=== PATIENT | male | born 1960 | race Caucasian/White ===

== ENCOUNTER 2017-07-30 12:58 | Emergency (ER) | payer OTHER ==
[~2017-07-30] VITALS: Ht 185.4 cm; Wt 170.1 kg
[~2017-07-30 12:58] MED LIST: ADULT LOW DOSE81 MG PO; BACTRIM DS TAB1 EACH PO; DULCOLAX5 MG PO; GLUCOPHAGE1000 MG PO; KEFLEX500 MG PO; LANTUS SOL100 UNIT/1 SUB-Q; LISINOPRIL-HCT1 EACH PO; MIRALAX17 GM PO; MOBIC15 MG PO; NOVOLOG100 UNITS/ IV; SIMVASTATIN40 MG PO
--- OUTSIDE RECORDS SUMMARY | 2017-07-30 14:04 | XMS | Clinical Summary ---
Demographics + + + | Address | [address] | | | [place] [address] | + + + | Home Phone | | + + + | Preferred Language | Unknown | + + + | Marital Status | Single | + + + | Mormonism Affiliation | Unknown | + + + | Race | White | + + + | Ethnic Group | Not or | + + + Author + + + | Author | [facility] | + + + | Organization | [facility] | + + + | Address | Unknown | + + + | Phone | Unavailable | + + + Support +------+ +---------+ + | Name | Relationship | Address | Phone | +------+ +---------+ + ECON | Unknown | | +------+ +---------+ + Care Team Providers + +------+-------+ | Care Clothing Sales Assistant Name | Role | Phone | + +------+-------+ | Jerrell Medina DO | PP | tel | + +------+-------+ Source Comments [facility] both [facility] and [facility] Allergies + + + + + + | Active Allergy | Reactions | Severity | Noted | Comments | | | | | Date | | + + + + + + | Buprenorphine Hcl | Diaphoresis | | 02/23/20 | HOT AND SWEATY | | | | | 16 | | + + + + + + | Morphine | Nausea and Vomiting | | 02/23/20 | | | | | | 16 | | + + + + + + Current Medications + + +-------+---------+------+------+-------+ | Prescription | Sig. | Disp. | Refills | Star | End | Statu | | | | | | t | Date | s | | | | | | Date | | | + + +-------+---------+------+------+-------+ | aspirin chewable | Chew and swallow 81 | | | | | Activ | | 81 mg oral | mg once daily. | | | | | e | | tablet,chewable | | | | | | | + + +-------+---------+------+------+-------+ | insulin glargine | Inject 40 Units | | | | | Activ | | 100 unit/mL | under the skin | | | | | e | | subcutaneous | (SUBC) once daily at | | | | | | | solution | bedtime. | | | | | | + + +-------+---------+------+------+-------+ | | Take 1 tablet by | | | | | Activ | | lisinopril-hydrochlo | mouth once daily. | | | | | e | | rothiazide 20-12.5 | | | | | | | | mg oral tablet | | | | | | | + + +-------+---------+------+------+-------+ | insulin aspart | Inject under the | | | | | Activ | | (NOVOLOG) 100 | skin (SUBC) once | | | | | e | | unit/mL subcutaneous | daily as needed. | | | | | | | solution | | | | | | | + + +-------+---------+------+------+-------+ | simvastatin 40 mg | Take 40 mg by mouth | | | | | Activ | | oral tablet | once daily in the | | | | | e | | | evening. | | | | | | + + +-------+---------+------+------+-------+ | metFORMIN 1,000 mg | Take 1,000 mg by | | | | | Activ | | oral tablet | mouth two times | | | | | e | | | daily. | | | | | | + + +-------+---------+------+------+-------+ Active Problems + + + | Problem | Noted Date | + + + | Morbid obesity with BMI of 45.0-49.9, adult (HCC) | 02/23/2016 | + + + | Benign essential HTN | 02/23/2016 | + + + | Hyperlipidemia | 02/23/2016 | + + + | DM type 2, not at goal (HCC) | 02/23/2016 | + + + | Chronic pain | 02/23/2016 | + + + | Vitamin D deficiency disease | 02/23/2016 | + + + | NADIYA on CPAP | 02/23/2016 | + + + Family History + + +------+ + | Medical History | Relation | Name | Comments | + + +------+ + | Cancer | Father | | colon | + + +------+ + | Diabetes | Father | | | + + +------+ + | Arthritis | Mother | | | + + +------+ + | Cancer | Mother | | breast | + + +------+ + | Hypertension | Mother | | | + + +------+ + + +------+--------+ + | Relation | Name | Status | Comments | + +------+--------+ + | Father | | | | + +------+--------+ + | Mother | | | | + +------+--------+ + Social History + + + +--------+------+ | Tobacco Use | Types | Packs/Day | Years | Date | | | | | Used | | + + + +--------+------+ | Current Some Day | Cigarettes | | | | | Smoker | | | | | + + + +--------+------+ + +------+---+---+ | Smokeless Tobacco: | Chew | | | | Current User | | | | + +------+---+---+ + + +---------+ + | Alcohol Use | Drinks/We | oz/Week | Comments | | | ek | | | + + +---------+ + | Yes | 10 | 6.0 | | | | Standard | | | | | drinks or | | | | | | | | | | equivalen | | | | | t | | | + + +---------+ + + + + | Sex Assigned at | Date Recorded | | | | + + + | Not on file | | + + + Last Filed Vital Signs + + + + | Vital Sign | Reading | Time Taken | + + + + | Blood Pressure | 155/80 | 02/23/2016 10:10 AM PDT | + + + + | Pulse | 74 | 02/23/2016 10:10 AM PDT | + + + + | Temperature | 36.6 C (97.8 F) | 02/23/2016 10:10 AM PDT | + + + + | Respiratory Rate | 18 | 02/23/2016 10:10 AM PDT | + + + + | Oxygen Saturation | 95% | 02/23/2016 10:10 AM PDT | + + + + | Inhaled Oxygen | - | - | | Concentration | | | + + + + | Weight | 166.4 kg (366 lb | 02/17/2017 3:17 PM PDT | | | 12.8 oz) | | + + + + | Height | 183.5 cm (6' 0.25") | 02/23/2016 10:10 AM PDT | + + + + | Body Mass Index | 49.4 | 02/17/2017 3:17 PM PDT | + + + + Plan of Treatment + + + + + | Health Maintenance | Due Date | Last Done | Comments | + + + + + | INFLUENZA VACCINE | | 05/09/2016, 05/14/2010, | | | (FLU SHOT) | 7 | 05/05/2008 | | + + + + + Results Not on filefrom Last 3 Months
--- OUTSIDE RECORDS SUMMARY | 2017-07-30 14:04 | XMS | Clinical Summary ---
Demographics + + + | Address | [address] | | | [place] [address] | + + + | Home Phone | | + + + | Preferred Language | Unknown | + + + | Marital Status | Single | + + + | Sikhism Affiliation | Unknown | + + + | Race | White | + + + | Ethnic Group | Not or | + + + Author + + + | Author | [facility] | + + + | Organization | [facility] | + + + | Address | Unknown | + + + | Phone | Unavailable | + + + Support +------+ +---------+ + | Name | Relationship | Address | Phone | +------+ +---------+ + ECON | Unknown | | +------+ +---------+ + Care Team Providers + +------+-------+ | Care Ripshear Operator Name | Role | Phone | + +------+-------+ | Jerrell Medina DO | PP | tel | + +------+-------+ Source Comments [facility]ending [facility] Allergies + + + + + [...]
[2017-07-30] MEDS ORDERED: KEFLEX500 MG PO (17:57)
[2017-07-30] MEDS ORDERED: BACTRIM DS TAB1 EACH PO (17:58)
== END 2017-07-30 18:10 | disposition home or self-care (01) ==
LOC: ED 12:58
PROC: 0H99XZZ Drainage of Perineum Skin, External Approach (ICD-10-PCS; principal; 2017-07-30)
DX: L02.215 Cutaneous abscess of perineum (principal); L03.315 Cellulitis of perineum; E11.65 Type 2 diabetes mellitus with hyperglycemia; I10 Essential (primary) hypertension; E78.00 Pure hypercholesterolemia, unspecified; Z88.5 Allergy status to narcotic agent; Z79.899 Other long term (current) drug therapy; Z79.4 Long term (current) use of insulin
CPT/HCPCS: 10060; 80053; 85025; 96374; 99283; J0696

== ENCOUNTER 2023-12-19 09:52 | Day surgery (SDC) | payer OTHER ==
[2023-12-13 08:24] VITALS: BP 144/73
[~2023-12-19] VITALS: Ht 185.4 cm; Wt 177.3 kg
[~2023-12-19 09:52] MED LIST changes: +CEFAZOLIN SODIUM 3 GM/30 ML SYR IV SCH; +FLOMAX0.4 MG PO; +FUROSEMIDE20 MG PO; +IBLOOD GLUCOSE TEST STRIP 1 EA TEST VI PRN; +LACTATED RINGER'S 1,000 ML IV SCH; +LEVOFLOXACIN500 MG PO; +LIDOCAINE HCL 1% 5 ML SDV INJ ONE; +LIPITOR80 MG GT; +MELOXICAM15 MG PO; +NEURONTIN300 MG PO; +NORVASC5 MG PO; +OSTERA TABLET1 EACH PO; +OXYBUTYNIN CHLO10 MG PO; +OZEMPIC2 MG/0.75; +PHENTERMINE HCL30 MG PO; +PIOGLITAZONE HC30 MG PO; +PROSCAR5 MG PO; +ROPINIROLE HC0.25 MG PO; +TADALAFIL10 MG PO; +TOUJEO SOL300 UNIT/1 SUB-Q
[2023-12-19 10:34] VITALS: BP 129/42
[2023-12-19] MEDS ORDERED: LIDOCAINE HCL 2% 5 ML SDV ONE (11:02)
[2023-12-19] MEDS ORDERED: propofoL 200 MG/20 ML VIAL ONE (11:02)
[2023-12-19 12:42] VITALS: BP 129/58
--- NOTE | 2023-12-19 12:47 | NUR ---
12/19/23 1247 Courtney Carr 1154 PT ARRIVED IN PACU SLEEPY WITH NO C/O'S. ABD SOFT. 1205 PASSING FLATUS AND TALKING WITH STAFF. 1215 DR AT BEDSIDE. ALL QUESTIONS ANSWERED. DR CHECKED PT'S CYST ON HIS SCROTUM AND TOLD HIM TO MAKE APPT IF HE WANTS IT REMOVED. 1220 DC INSTRUCTIONS GIVEN. 1224 LEFT VIA W/C.
--- NOTE | 2023-12-20 15:11 | OR ---
[facility] [address] [place], [place] [address] Signed DATE OF OPERATION: 12/19/2023 SURGEON: Yolis Meza MD PREOPERATIVE DIAGNOSES: 1. Family history of rectal cancer. 2. History of polyps. POSTOPERATIVE DIAGNOSES: Normal-appearing colon, biopsy of rectum to assess for occult colitis (episodic diarrhea complaints). PROCEDURE: Total colonoscopy to cecum with biopsy of rectum. ANESTHESIA: Intravenous sedation; propofol, Maeve Perico, CARPENTER AND JOINER and use of CPAP device. INDICATION: This 63-year-old white man is a patient Dr. Felicia Aguirre, who underwent colonoscopy several years ago by Dr. Pineda Hooper, was found to have polyps. He does have occasional diarrhea. He has a family history of rectal cancer in a family member. He has extreme obesity, weight is 375 pounds. He uses a CPAP device. He is admitted at this time to undergo screening colonoscopy. He understands the risk of bleeding, infection, and perforation. FINDINGS: The prep was excellent. Complete colonoscopy was undertaken to the cecum. Full and complete intubation of the cecum was accomplished. There was no evidence of polyps, diverticular formation, colitis, or cancer. Biopsy was taken of the rectum to assess for occult colitis. DESCRIPTION OF PROCEDURE: The patient was brought to the endoscopy suite and placed in the lateral decubitus position. His nasal CPAP device was in place. He was given intravenous sedation with careful monitoring by the orthopedic shoe maker given his extreme obesity. After satisfactory sedation, digital rectal examination was performed which was normal. Olympus video colonoscope was passed in the rectum and manipulated throughout the colon ultimately intubating the cecum itself. The ileocecal valve and appendiceal orifice were normal. The scope was then withdrawn and examination throughout showed no sign of abnormality. Electronically Signed By: YOLIS MEZA MD 12/19/23 0432 Electronically Signed By: YOLIS MEZA MD 12/21/23 1106 PATIENT NAME: TAMERA ARZOLA OPERATIVE REPORT DATE OF : 64 REPORT #: [id number] PHYSICIAN: YOLIS MEZA MD PCP: FELICIA AGUIRRE MD REPORT IS CONFIDENTIAL AND NOT TO BE RELEASED WITHOUT AUTHORIZATION [facility] [address] [place], [place] [address] Signed The rectum was normal as well. Retroflexed view was normal. Biopsies were taken of the rectum to assess for occult colitis considering his episodic diarrhea issue. The scope was then removed and the patient was taken to the recovery room in good condition. CONCLUDING DIAGNOSIS: Normal colon. PLAN: Would recommend repeat colonoscopy in 5 years based on family history of rectal cancer, sooner if symptoms should develop. We will review his pathology report regarding rectal biopsy. MD ANNIKA Quinn/ASHLEY /[id number] cc: Felicia Aguirre MD Copies: FELICIA AGUIRRE DMD ~ Electronically Signed By: YOLIS MEZA MD 12/19/23 2146 Electronically Signed By: YOLIS MEZA MD 12/21/23 1105 PATIENT NAME: TAMERA ARZOLA OPERATIVE REPORT DATE OF : 64 REPORT #: [id number] PHYSICIAN: YOLIS MEZA MD PCP: FELICIA AGUIRRE MD REPORT IS CONFIDENTIAL AND NOT TO BE RELEASED WITHOUT AUTHORIZATION
--- NOTE | 2023-12-20 18:28 | EKG ---
[facility] [address] [facility] [place], [place] [address] Signed Normal sinus rhythm Normal ECG When compared with ECG of 13-DEC-2023 08:33, Previous ECG has undetermined rhythm, needs review Confirmed by Lesvia Bran MD ([id number]) on 12/20/2023 6:28:18 PM Electronically Signed By: LESVIA BRAN 12/20/23 1828 PATIENT NAME: DIONTEMAINEBEARTAMERA Electrocardiogram DATE OF : 64 PHYSICIAN: LESVIA BRAN REPORT #: [id number] REPORT IS CONFIDENTIAL AND NOT TO BE RELEASED WITHOUT AUTHORIZATION
--- NOTE | 2023-12-21 17:10 | PATH ---
[facility] [address] [place], [place] [address] Signed SPECIMEN(S): A RECTUM BIOPSY SPECIMEN SOURCE: A. RECTUM BIOPSY CLINICAL HISTORY: Surveillance colonoscopy, family history of colon cancer, recurrent diarrhea, normal-appearing colon FINAL PATHOLOGIC DIAGNOSIS: Rectum, biopsies: - Hyperplastic colonic mucosa, negative for colitis, granulomas or dysplasia. AMB MICROSCOPIC EXAMINATION: Histologic sections of all submitted blocks are examined by light microscopy. These findings, together with the gross examination, support the pathologic diagnosis. GROSS DESCRIPTION: The specimen, labeled and designated "[place], rectum biopsy," is received in formalin and consists of three thomas soft tissue fragments, ranging from 0.3-0.4 cm. Entirely submitted in (A1). VB (under the direct supervision of a pathologist) The Gross Description was prepared using a voice recognition system. The report was reviewed for accuracy; however, sound-alike word errors, addition and/or deletions may occur. If there is any question about this report, please contact Client Services. ADDITIONAL NOTES: Immunohistochemical and/or in situ hybridization studies if performed in this case included appropriate positive controls that reacted as expected. This test was developed and its performance characteristics determined by [facility]. It has not been cleared or approved by the U.S. Food and Drug Administration. The FDA has determined that such clearance or approval is not necessary. This test is used for clinical purposes. It should not be regarded as investigational or for research. [facility] is certified under the Clinical Laboratory Improvement Amendments of 1988 (CLIA) as qualified to perform high complexity clinical laboratory testing. PATIENT NAME: TAMERA ARZOLA PATHOLOGY DATE OF : 64 REPORT #: [id number] PHYSICIAN: TRENA PATHOLOGY PCP: FELICIA AGUIRER MD REPORT IS CONFIDENTIAL AND NOT TO BE RELEASED WITHOUT AUTHORIZATION [facility] [address] [place], [place] [address] Signed PERFORMING LABORATORY: Technical component was performed by [facility], [address] [place] [address] (CLIA# [id number]). Professional interpretation was performed by [facility] [address] [address] [id number] Diagnostician: Sofia Chavis MD Pathologist Electronically Signed 12/21/2023 Copies: ~ PATIENT NAME: TAMERA ARZOLA PATHOLOGY DATE OF : 64 REPORT #: [id number] PHYSICIAN: TRENA ELDER PCP: FELICIA AGUIRRE MD REPORT IS CONFIDENTIAL AND NOT TO BE RELEASED WITHOUT AUTHORIZATION
== END 2023-12-19 12:24 | disposition home or self-care (01) ==
LOC: DS 09:52 → OPS 09:52 → DS 10:00 → OPS 11:40 → DS 11:40 → OPS 12:24
PROVIDERS: ATTEND Surgery
PROC: 0DBP8ZX Excision of Rectum, Via Natural or Artificial Opening Endoscopic, Diagnostic (ICD-10-PCS; principal; 2023-12-19 11:40)
DX: Z12.11 Encounter for screening for malignant neoplasm of colon (principal); K62.1 Rectal polyp; E11.9 Type 2 diabetes mellitus without complications; E66.9 Obesity, unspecified; Z80.0 Family history of malignant neoplasm of digestive organs; Z86.010 Personal history of colon polyps
CPT/HCPCS: 00811; 93005; 93010; J0690; J2001; J2704; J7121

== ENCOUNTER 2025-02-20 09:50 | Day surgery (SDC) | payer OTHER ==
[2025-02-18 14:55] VITALS: BP 137/59
[~2025-02-20] VITALS: Ht 182.9 cm; Wt 171.8 kg
[~2025-02-20 09:50] MED LIST changes: +CEFAZOLIN SODIUM 2 GM/20 ML SYR IV SCH; -LIPITOR80 MG GT; +LIPITOR80 MG PO; +NOVOLOG100 UNIT/2 SUB-Q; -NOVOLOG100 UNITS/ IV; -OZEMPIC2 MG/0.75; +OZEMPIC2 MG/0.75 SUB-Q
[2025-02-20 10:03] VITALS: BP 132/59
--- NOTE | 2025-02-20 10:31 | NUR ---
BROTHER FOR RIDE HOME OR GF SECOND.
--- NOTE | 2025-02-20 11:20 | NUR ---
denies any needs updated on wait.
[2025-02-20] MEDS ORDERED: MIDAZOLAM HCL 2 MG/2 ML VIAL ONE (11:34)
[2025-02-20] MEDS ORDERED: LIDOCAINE HCL 0.5% 50 ML SDV ONE (11:34)
[2025-02-20] MEDS ORDERED: KETOROLAC TROMETHAMINE 30 MG/ML VIAL ONE (12:12)
[2025-02-20] MEDS ORDERED: NALOXONE HCL 0.4 MG SYR IV PRN ×2 (12:15→12:45)
[2025-02-20] MEDS ORDERED: PROCHLORPERAZINE EDISYLATE 10 MG/2 ML VIAL IV PRN (12:15)
[2025-02-20] MEDS ORDERED: fentaNYL citrate 50 MCG/ML SDV IV PRN (12:15)
[2025-02-20] MEDS ORDERED: IBLOOD GLUCOSE TEST STRIP 1 EA TEST VI PRN (12:15)
[2025-02-20] MEDS ORDERED: HYDROmorphone HCL 1 MG/ML SYR IV PRN (12:15)
[2025-02-20 12:32] VITALS: BP 127/63
[2025-02-20] MEDS ORDERED: MOTRIN IB200 MG PO (12:37)
[2025-02-20] MEDS ORDERED: PERCOCET 7.5-31 EACH PO (12:38)
[2025-02-20] MEDS ORDERED: TYLENOL EXTRA500 MG PO (12:38)
--- NOTE | 2025-02-20 12:44 | NUR ---
02/20/25 Eduin4 Romina Mast 1218 PT TO PACU SLEEPING ORAL AIRWAY IN PLACE O2 VIA MASK. FOGGING NOTED IN MASK. BLOOD GLUCOSE 112.
--- NOTE | 2025-02-21 10:57 | OR ---
[facility] [address] [place], [place] [address] Signed DATE OF OPERATION: 02/20/2025 SURGEON: Yolis Meza MD PREOPERATIVE DIAGNOSES: 1. Severe left carpal tunnel syndrome. 2. Very morbid obesity (384 pounds). POSTOPERATIVE DIAGNOSES: 1. Severe left carpal tunnel syndrome. 2. Very morbid obesity (384 pounds). PROCEDURE: Left carpal tunnel release. ANESTHESIA: Left ear block with IV sedation; Hussein Flores CRNA and local 2 mL of 0.25% Marcaine with epinephrine. INDICATION: This 64-year-old morbidly obese white man is a patient DrSarkis Steward. He has had symptoms highly typical of left carpal tunnel syndrome including numbness and tingling of his thumb, index, middle and radial aspect of his fourth finger. He underwent specialized neurologic testing on December 23, [address] 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 He is here at this time to undergo operative intervention to include a left carpal tunnel release. He understands the risk of bleeding, infection, failure to cure the problem, recurrent disease and other unforeseen complications and wished to proceed. FINDINGS: Exsanguination of the arm was noted related to his [place] block. The median nerve was found to be chronically inflamed. Transverse carpal ligament was thickened as would be expected. Division was taken up to the distal wrist crease and onto the palmar fascia as well. He tolerated the procedure well. There was no complication. DESCRIPTION OF PROCEDURE: The patient was brought to the operating room in the supine position, underwent a [place] block anesthetic of the left wrist. Excellent exsanguination of the arm was noted. The tourniquet was taken to 250 mmHg pressure for this portion of the procedure. The left lower arm and hand were prepared with a Betadine based solution and draped sterilely. A Electronically Signed By: YOLIS MEZA MD 02/21/25 1057 PATIENT NAME: TAMERA ARZOLA OPERATIVE REPORT DATE OF : 64 REPORT #: [id number] PHYSICIAN: YOLIS MEZA MD PCP: FELICIA STEWARD MD REPORT IS CONFIDENTIAL AND NOT TO BE RELEASED WITHOUT AUTHORIZATION [facility] [address] [place], [place] [address] Signed rolled towel was placed behind the wrist allowing for good extension and the metallic finger retractors placed to optimally expose the volar aspect of the wrist. The thenar crease was identified as was the palmaris longus tendon. A longitudinal incision was made parallel to the thenar crease. Dissection was carried through the skin and dermis with a 15 blade. The edges of the wound were cauterized showing only minimal signs of dark venous blood as would be expected. Dissection was carried through the palmar fat through the palmaris longus identifying ultimately transverse carpal ligament which was carefully incised with 15 blade. Headlight and loupe magnification were used. A small portion of the transverse carpal ligament was incised and hemostats placed beneath it protecting the underlying median nerve. The transverse ligament was incised to the palmar fascia distally. The hemostat was replaced and place proximally allowing for division of the more proximal portion of the transverse carpal ligament. The upper most portions were incised with tenotomy scissors up to the distal wrist crease. Irrigation was undertaken. The examination did not identify the motor branch to the thenar nerve. 2 mL of 0.25% Marcaine with epinephrine injected locally. A small amount of muscle from the thenar muscle was cauterized with electrocautery so as to avoid postoperative bleeding. The wound was then closed with interrupted 2-0 nylon suture in vertical mattress configuration. Xeroform dressing was applied as was some gauze and ultimately a Flexicon and a cock-up wrist splint followed thereafter by an LORI wrap 4 inch in size. Application of pressure to the operative site was then undertaken. The tourniquet was withdrawn at 21 minute since its inflation and pressure applied to the site until rubor returned to the fingers. He was taken to recovery room in good condition. Blood loss was essentially zero. Yolis Meza MD /MODL /[id number] cc: MD Dr. Jaja Barry [place] Electronically Signed By: YOLIS MEZA MD 02/21/25 1057 PATIENT NAME: TAMERA ARZOLA OPERATIVE REPORT DATE OF : 64 REPORT #: [id number] PHYSICIAN: YOLIS MEZA MD PCP: FELICIA STEWARD MD REPORT IS CONFIDENTIAL AND NOT TO BE RELEASED WITHOUT AUTHORIZATION [address] [address] Signed Copies: FELICIA STEWARD DMD ~ Electronically Signed By: YOLIS MEZA MD 02/21/25 1057 PATIENT NAME: TAMERA ARZOLA OPERATIVE REPORT DATE OF : 64 REPORT #: [id number] PHYSICIAN: YOLIS MEZA MD PCP: FELICIA STEWARD MD REPORT IS CONFIDENTIAL AND NOT TO BE RELEASED WITHOUT AUTHORIZATION
== END 2025-02-20 13:12 | disposition home or self-care (01) ==
LOC: DS 09:50
PROVIDERS: ATTEND Surgery
PROC: 01N50ZZ Release Median Nerve, Open Approach (ICD-10-PCS; principal; 2025-02-20 11:45)
DX: G56.02 Carpal tunnel syndrome, left upper limb (principal); E66.01 Morbid (severe) obesity due to excess calories; E11.9 Type 2 diabetes mellitus without complications; E78.00 Pure hypercholesterolemia, unspecified; I10 Essential (primary) hypertension; G47.30 Sleep apnea, unspecified; F17.220 Nicotine dependence, chewing tobacco, uncomplicated; Z68.42 Body mass index [BMI] 45.0-49.9, adult; Z79.4 Long term (current) use of insulin; Z79.84 Long term (current) use of oral hypoglycemic drugs; Z79.85 Long-term (current) use of injectable non-insulin antidiabetic drugs; Z79.899 Other long term (current) drug therapy; Z88.5 Allergy status to narcotic agent
CPT/HCPCS: J0690; J1885; J2250; J2704; J7121